=== PATIENT | female | born 2000 | race Caucasian/White ===

== ENCOUNTER 2019-05-20 16:20 | Outpatient (CLI) | payer MEDICAID ==
[2019-05-20 17:16] VITALS: BP 119/77
--- NOTE | 2019-05-20 20:10 | Ultrasound Report ---
OB Ultrasound Biophysical profile HISTORY: labor. TECHNIQUE: Grayscale and color Doppler imaging performed. COMPARISON: None FINDINGS: There is a single viable intrauterine gestation which is cephalic in presentation. The MALENA is 10 cm. heart rate is 138 bpm. On biophysical profile, the fetus received a score of 2 out of 2 for MALENA, breathing, movement, and to ne. Total score was 8 out of 8. Heart rate was 145 bpm on this portion of the exam. IMPRESSION: 1. Single viable intrauterine gestation. 2. Normal biophysical profile. Signer Name: Lonnie Goss MD Signed: 05/20/2019 8:06 PM Workstation Name: [id number]
== END 2019-05-20 19:49 | disposition home or self-care (01) ==
LOC: TRG 16:20
PROVIDERS: ATTEND Obstetrics & Gynecology
DX: O47.03 False labor before 37 completed weeks of gestation, third trimester (principal); Z3A.36 36 weeks gestation of pregnancy
CPT/HCPCS: 59025; 76815; 76819; 82962